=== PATIENT | male | born 1990 | race Two or more races ===

== ENCOUNTER 2019-08-22 17:45 | Emergency (ER) | payer OTHER ==
[~2019-08-22] VITALS: Ht 170.2 cm; Wt 86.2 kg
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
--- NOTE | 2019-08-22 18:59 | NUR ---
Patient discharged to home in stable condition. Written and verbal after care instructions given. Patient verbalizes understanding of instruction and RX. PT ambulatory with a steady gait.
[2019-08-22 19:00] VITALS: BP 128/58
== END 2019-08-22 19:00 | disposition home or self-care (01) ==
LOC: ER 17:45
DX: S06.0X0A Concussion without loss of consciousness, initial encounter (principal); S46.812A Strain of other muscles, fascia and tendons at shoulder and upper arm level, left arm, initial encounter; S19.80XA Other specified injuries of unspecified part of neck, initial encounter; S39.82XA Other specified injuries of lower back, initial encounter; M25.572 Pain in left ankle and joints of left foot; V23.4XXA Motorcycle driver injured in collision with car, pick-up truck or van in traffic accident, initial encounter; Y93.55 Activity, bike riding; Y92.89 Other specified places as the place of occurrence of the external cause; Y99.8 Other external cause status
CPT/HCPCS: 73610-TC

== ENCOUNTER 2022-02-21 01:44 | Emergency (ER) | payer SELFPAY ==
[~2022-02-21] VITALS: Ht 167.6 cm; Wt 63.5 kg
[2022-02-21 01:52] VITALS: BP 139/96
[2022-02-21] MEDS ORDERED: NALO1DIS2 IM (01:54)
== END 2022-02-21 03:28 | disposition home or self-care (01) ==
LOC: ER 01:48
DX: T40.601A Poisoning by unspecified narcotics, accidental (unintentional), initial encounter (principal); Y92.89 Other specified places as the place of occurrence of the external cause